=== PATIENT | male | born 1985 | race Caucasian/White ===

== ENCOUNTER 2018-06-22 10:21 | Emergency (ER) | payer OTHER ==
[2018-06-22 10:32] VITALS: TEMP 97.9
[2018-06-22] MEDS ORDERED: KETOROLAC TROMETHAMINE 30 MG/ML SOL IV ONE (10:48)
[2018-06-22] MEDS ORDERED: PANTOPRAZOLE SODIUM 40 MG/10 ML PDS IV ONE (10:49)
[2018-06-22] MEDS ORDERED: KETOROLAC TROMETHAMINE 30 MG/ML SOL ONE (10:58)
[2018-06-22] MEDS ORDERED: PANTOPRAZOLE SODIUM 40 MG/10 ML PDS ONE (10:59)
[2018-06-22] MEDS ORDERED: SODIUM CHLORIDE 0.9% 1000ML 1,000 ML IV SCH (11:00)
[2018-06-22 11:29] LABS: CRP INFLAMMATORY 15.48 mg/dl (0.00-0.33)
[2018-06-22] MEDS ORDERED: ASPIRIN 81 MG CHEWABLE CTB PO ONE (11:57)
[2018-06-22 12:00] LABS: AMPHETAMINES NEGATIVE (NEGATIVE); BARBITUATES NEGATIVE (NEGATIVE); BENZODIAZEPINES NEGATIVE (NEGATIVE); CANNABINOL(THC) NEGATIVE (NEGATIVE); COCAINE(COC) NEGATIVE (NEGATIVE); METHADONE NEGATIVE (NEGATIVE); METHAMPHETAMINES NEGATIVE (NEGATIVE); OPIATES(OPI) NEGATIVE (NEGATIVE); OXYCODONE(OXY) NEGATIVE (NEGATIVE); PROPOXYPHENE(PPX) NEGATIVE (NEGATIVE); TRICYCLIC ANTIDEPRESSANTS NEGATIVE (NEGATIVE)
[2018-06-22] MEDS ORDERED: ASPIRIN 81 MG CHEWABLE CTB ONE (12:10)
[2018-06-22] MEDS ORDERED: SODIUM CHLORIDE 0.9% 1000ML 1,000 ML IV ONE (12:14)
[2018-06-22] MEDS ORDERED: CEFTRIAXONE 1 GM PDS 2 GM in SODIUM CHLORIDE 0.9% 100 ML 100 ML IV ONE (12:16)
[2018-06-22] MEDS ORDERED: CEFTRIAXONE 1 GM PDS ONE (12:18)
[2018-06-22 12:34] VITALS: O2SAT 94
[2018-06-22 12:35] VITALS: BP 137/78; PULSE 97; RESP 24
== END 2018-06-22 12:30 | disposition short-term general hospital (02) | DRG 281 ==
LOC: ED 10:21
DX: I21.4 Non-ST elevation (NSTEMI) myocardial infarction (principal); I31.9 Disease of pericardium, unspecified; R07.9 Chest pain, unspecified; Z87.891 Personal history of nicotine dependence
CPT/HCPCS: 36415; 80305; 82550; 84484; 87040; 93005; 96365; 96366; 96374; 96375; 99291; J0696; J1885